=== PATIENT | female | born 1945 | race Caucasian/White ===

== ENCOUNTER 2016-11-28 10:00 | Inpatient (IN) | payer MEDICARE, OTHER ==
[2016-11-23 11:09] LABS: BASOPHILS 1.3 %; BASOPHILS ABSOLUTE 0.07 10/3/uL (0.0-0.16); EOSINOPHILS 2.5 %; EOSINOPHILS ABSOLUTE 0.14 10/3/uL (0.0-0.53); HEMATOCRIT 44.3 % (36.0-48.0); IMMATURE GRANULOCYTES 0.2 %; IMMATURE GRANULOCYTES ABSOLUTE 0.01 10/3/uL (0.0-0.11); LYMPHOCYTES 20.9 %; LYMPHOCYTES ABSOLUTE 1.17 10/3/uL (0.67-4.30); MANUAL DIFF NO %; MEAN CORPUS HGB CONC 33.9 g/dL (32.0-36.0); MEAN CORPUSCULAR HEMOGLOB 31.5 pg (26.0-34.0); MEAN CORPUSCULAR VOLUME 93.1 fL (80-100); MEAN PLATELET VOLUME 8.7 fL (9.2-13.0); MONOCYTES 7.3 %; MONOCYTES ABSOLUTE 0.41 10/3/uL (0.21-1.20); NEUTROPHILS 67.8 %; NEUTROPHILS ABSOLUTE 3.79 10/3/uL (2.02-8.40); PLATELET COUNT 420 10/3/uL (150-400); RED CELL COUNT 4.76 10/6/uL (4.0-5.6); WHITE BLOOD CELLS 5.6 10/3/uL (4.5-10.5)
[2016-11-23 11:20] LABS: A/G RATIO 1.3 (0.7-1.9); ALKALINE PHOSPHATASE 103 U/L (45-117); BUN (BLOOD UREA NITROGEN) 16 MG/DL (6-23); CALCIUM, SERUM 9.3 MG/DL (8.5-10.4); CHLORIDE, SERUM 105 MMOL/L (96-112); CO2 (CARBON DIOXIDE) 35 MMOL/L (24-34); CREATININE 0.86 MG/DL (0.55-1.02); GFR AFRICAN AMERICAN 79 ML/MIN (>=60); GFR NON AFRICAN AMERICAN 68 ML/MIN (>=60); GLOBULIN 3.1 G/DL (2.5-4.1); GLUCOSE, SERUM 102 MG/DL (60-99); POTASSIUM, SERUM 3.8 MMOL/L (3.5-5.3); SGOT(AST) 21 U/L (5-40); SGPT(ALT) 35 U/L (5-65); SODIUM, SERUM 141 MMOL/L (135-148); TOTAL BILIRUBIN 1.4 MG/DL (0-1.2); TOTAL PROTEIN 7.1 G/DL (6.0-8.5)
--- NOTE | ~2016-11-28 | OP ---
Record Of Operation [facility] [address] [place]. [address] NAME: JANAK ADLER : 45 STATUS : ADM IN PAT#: [id number] AGE: 71 ADM/REG DATE : 11/29/16 MR#: [id number] REPORT SERV DATE: 11/29/16 DICTATED BY: KANA VALDES DATE: 11/29/16 REPORT STATUS : Draft TRANSCRIBED BY: BETSY DATE: 11/29/16 DATE OF PROCEDURE: 11/29/2016 HAND SIZER: Dr. Ye. ANESTHESIA: General and local. PREOPERATIVE DIAGNOSIS: Bleeding and hematoma formation in the left chest wall status post mastectomy. POSTOPERATIVE DIAGNOSIS: Bleeding and hematoma formation in the left chest wall status post mastectomy. PROCEDURE: Evacuation of hematoma, left chest wall. HISTORY: The patient is a 71-year-old female, who underwent left mastectomy and sentinel node biopsy yesterday without reconstruction. Overnight, she has developed significant bloody fluid from both drains, but more significantly, formation of a large hematoma in the left chest wall mastectomy site. The incision remains intact. The patient has extensive ecchymosis over the anterior flaps as well as her left lateral chest wall extending toward the flank. She does not appear to have active bleeding or expansion of the hematoma at this time. Because of the size of this, return to the operating room was advised today for evacuation of the hematoma and control of any residual bleeding. NARRATIVE SUMMARY: After satisfactory general anesthesia, the patient was placed supine with both arms on arm boards. The Rafael-Cavazos drains were left in place and the drain bulbs left out of the operative field. The left chest wall and axillary areas were then prepped and draped in the usual fashion. A time-out called was called to verify the identity of the patient, review allergies, verify appropriate administration of antibiotics, and verify the appropriate procedure as evacuation of hematoma, left chest wall. The previous incision was reopened with readily apparent large amount of clotted blood beneath the flaps. This was manually evacuated with a total of about 300 mL found. The wound was extensively irrigated with warm saline and remnants of clot removed as was possible. There was no active bleeding noted from any site during examination of the wound. The existing drains were left in place as they remained functional. The incision was reclosed in a transverse fashion in layers utilizing 3-0 Vicryl interrupted subcutaneous suture and 4-0 Monocryl running subcuticular closure for skin. Dressings were applied, and the patient was awakened and transported to the recovery area in stable condition. Estimated blood loss for the actual procedure was 30 mL. Sponge, instrument, and needle counts were all correct. There were no complications noted intraoperatively. Record Of Operation [address] [place]. [address] NAME: JANAK ADLER : 45 STATUS : ADM IN PAT#: [id number] AGE: 71 ADM/REG DATE : 11/29/16 MR#: [id number] REPORT SERV DATE: 11/29/16 DICTATED BY: KANA VALDES DATE: 11/29/16 REPORT STATUS : Draft TRANSCRIBED BY: BETSY DATE: 11/29/16 LW/BETSY Kana Valdes M.D. / [id number] CC: Buddy Bennett M.D.
--- NOTE | ~2016-11-28 | OP ---
Record Of Operation [facility] [address] [place]. [address] NAME: JANAK ADLER : 45 STATUS : ADM IN PAT#: [id number] AGE: 71 ADM/REG DATE : 11/28/16 MR#: [id number] REPORT SERV DATE: 11/28/16 DICTATED BY: KANA VALDES DATE: 11/28/16 REPORT STATUS : Draft TRANSCRIBED BY: MODL DATE: 11/28/16 DATE OF PROCEDURE: 11/28/2016 SURGEON: Kana Valdes M.D. ANESTHESIA: General and local. PREOPERATIVE DIAGNOSIS: Left breast cancer. POSTOPERATIVE DIAGNOSIS: Left breast cancer. PROCEDURES: 1. Injection of blue dye, left breast. 2. Left mastectomy. 3. Left axillary sentinel node biopsy. HISTORY: The patient is a 71-year-old, white female, who had previously undergone right mastectomy in 1983 for what sounded like a noninvasive or early stage breast cancer. She required no adjuvant therapy. She recently presented with an enlarging mass in her left lower breast at 6 o'clock position. 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 This was ER/AZ positive and HER-2/oanh negative. Ki-67 was low at less than 10%. There was a secondary nodule at the 6 o'clock position slightly more anterior in position. This was biopsied, but was benign. MRI was performed for further evaluation. This showed the lesion in question with strands of enhancement extending toward the nipple, possibly indicating more extensive disease. There was no evidence of adenopathy. The patient's clinical stage was felt to be T1 N0 M0. She was counseled regarding her treatment options. Since she had had a prior mastectomy, she strongly desired to proceed with left mastectomy with no reconstruction plan. She was also counseled regarding sentinel node biopsy with plans to proceed with this as well. NARRATIVE SUMMARY: Earlier in the day, the patient was taken to the nuclear medicine department where she underwent injection of technetium-99m sulfur colloid to the skin of the left breast. Subsequent imaging illuminated a sentinel node in the low axilla. She was brought to surgery and given a balanced general anesthetic. Both arms were placed out on arm boards. After appropriate skin prep, a 1:4 dilution of methylene blue dye was injected in the left subareolar space and the breast massaged for several minutes. Record Of Operation [facility] [address] [place]. [address] NAME: JANAK ADLER : 45 STATUS : ADM IN PAT#: [id number] AGE: 71 ADM/REG DATE : 11/28/16 MR#: [id number] REPORT SERV DATE: 11/28/16 DICTATED BY: KANA VALDES DATE: 11/28/16 REPORT STATUS : Draft TRANSCRIBED BY: BETSY DATE: 11/28/16 The left breast and axillary areas were then prepped and draped in the usual fashion. A time-out was called to verify the identity of the patient, review allergies, verify appropriate administration of antibiotics, and verify the appropriate procedure as being left mastectomy with sentinel node biopsy. There were no palpable abnormalities noted in the breast or the axilla. A transversely oriented elliptical incision was made incorporating the nipple-areolar complex and much of the skin of the breast. Skin and subcutaneous flaps were raised superiorly to the level of the clavicle, medially to the sternum, inferiorly to the rectus abdominis fascia and laterally to the serratus anterior muscle. The breast was removed in a medial to lateral direction taking underlying pectoralis fascia with it. The specimen was marked for orientation purposes with a suture placed medially and sent fresh to the pathologist labeled left breast. The pathologist serially sectioned the specimen and was able to identify both biopsy sites. There appeared to be minimal to no gross disease remaining at the cancer site. The entire specimen will be processed for permanent pathologic examination. Attention was turned to the axilla. The axillary fat pad entered. The Gamma probe was used to localize a node which was readily palpable and was also blue stained. This was removed from surrounding tissue, performing all dissection in the axilla using the Harmonic scalpel. This node had an ex vivo 10-second count of 12,653 and was labeled sentinel node #1. There was no other significant residual background count remaining within the axilla to gamma probe interrogation. There was no further blue dye seen and no other palpable nodes present. No further dissection in the axilla was felt indicated. The single sentinel node was sent as a separate specimen for permanent section only labeled sentinel node #1. The wound was thoroughly irrigated and aspirated free of fluid. Bleeding on the chest wall was controlled using cautery. Two 10 flat Rafael-Cavazos drains were placed through separate stab wounds and left beneath the flaps. Closure was accomplished transversely in layers using 3-0 Vicryl interrupted subcutaneous suture and 4-0 Monocryl running subcuticular closure for skin. Excess skin at both ends of the incision was resected to provide a smooth closure. This resected tissue was also sent as a separate specimen labeled left chest wall skin. Dressings were applied and the patient was awakened and transported to the recovery area in stable condition. Estimated blood loss was 20 mL. Sponge, instrument, and needle counts were all correct. There were no complications noted. PATY/BTESY Kana Record Of Operation [address] [address] NAME: JANAK ADLER : 45 STATUS : ADM IN PAT#: [id number] AGE: 71 ADM/REG DATE : 11/28/16 MR#: [id number] REPORT SERV DATE: 11/28/16 DICTATED BY: KANA VALDES DATE: 11/28/16 REPORT STATUS : Draft TRANSCRIBED BY: BETSY DATE: 11/28/16 Buddy Valdes / [id number] CC: Buddy Bennett Susan
[~2016-11-28 10:00] MED LIST: ASA5GR PO; CATS CLAW; CINNAMONPO; CITRACAL PO; CURCUMIN; FISH-EPA1000 MG PO; GLUCOSAMINEPO; LORTAB 5 PO; MAGOX4 PO; MULTIPLE VIT PO; PRIN10 PO; PROBIOTIC; PROTONIX PO; VITAMIN D31000 UNIT PO; VITC500 PO; [UNRECOGNIZED DRUG - OTHER] PO
[2016-11-30] MEDS ORDERED: NORCO1 TA1 PO (10:37)
== END 2016-11-30 13:30 | disposition home or self-care (01) | DRG 580 ==
LOC: SDC 10:00 → 4EA 21:36
PROVIDERS: Surgery
PROC: 07B90ZX Excision of Left Internal Mammary Lymphatic, Open Approach, Diagnostic (ICD-10-PCS; 2016-11-29)
PROC: 0JC60ZZ Extirpation of Matter from Chest Subcutaneous Tissue and Fascia, Open Approach (ICD-10-PCS; 2016-11-29)
PROC: 0HTU0ZZ Resection of Left Breast, Open Approach (ICD-10-PCS; principal; 2016-11-29 14:15)
DX: C50.912 Malignant neoplasm of unspecified site of left female breast (principal); L76.32 Postprocedural hematoma of skin and subcutaneous tissue following other procedure
CPT/HCPCS: 71020; 78195; 80053; 85025; 88305; 88307; 88341; 88342; 93005; A9270-GY; A9541; J1885; J2250; J2405; J3010; J3370